=== PATIENT | male | born 1975 ===

== ENCOUNTER 2018-05-13 05:30 | Emergency (ER) | payer OTHER ==
[2018-05-13] MEDS ORDERED: Sodium Chloride 0.9% 1,000 ML IV STA (05:47)
--- NOTE | 2018-05-13 05:47 | ED PDOC ---
Arrival/HPI - General Chief Complaint: Abdominal Pain Time Seen by Provider: 05/13/18 05:33 Historian: Patient - History of Present Illness Narrative History of Present Illness (Text): 05/13/18 05:45 Jack Bush is a 43 year old male who presents to the Emergency department complaining of abdominal cramping. Patient states he was recently treated for pneumonia and placed on Levaquin and steroids 1 week prior. Patient states throughout the week he has been experiencing abdominal cramping with associated generalized malaise and nausea after taking the medication. Patient denies any fever, chills, chest pain, shortness of breath, vomiting, neck pain, headache, dizziness, or any other complaints. Time/Duration: 1 week Symptom Onset: Gradual Symptom Course: Unchanged Activities at Onset: Light Context: Home Past Medical History - Provider Review Nursing Documentation Reviewed: Yes - Cardiac Hx Cardiac Disorders: No - Pulmonary Hx Pneumonia: Yes - Neurological Hx Neurological Disorder: No - HEENT Hx HEENT Disorder: No - Renal Hx Renal Disorder: No - Endocrine/Metabolic Hx Endocrine Disorders: No - Hematological/Oncological Hx Blood Disorders: No - Integumentary Hx Dermatological Disorder: No - Musculoskeletal/Rheumatological Hx Musculoskeletal Disorders: No - Gastrointestinal Hx Gastrointestinal Disorders: No - Genitourinary/Gynecological Hx Genitourinary Disorders: No - Psychiatric Hx Psychophysiologic Disorder: No Hx Substance Use: No - Surgical History Hx Abdominal Aortic Aneurysm Repair: No - Anesthesia Hx Anesthesia: No Family/Social History - Physician Review Nursing Documentation Reviewed: Yes Family/Social History: Unknown Family HX Smoking Status: Never Smoked Hx Alcohol Use: No Hx Substance Use: No Allergies/Home Meds Allergies/Adverse Reactions: Allergies No Known Allergies Allergy (Verified 05/13/18 05:45) Home Medications: Home Meds Medication Instructions Recorded Confirmed Brompheniramine/Pseudoephed/Dm 2 tsp PO TID PRN 05/13/18 05/13/18 [[id number]-Mk Syr] levoFLOXacin [Levaquin] 500 mg PO DAILY 05/13/18 05/13/18 Review of Systems - Physician Review All systems were reviewed & negative as marked: Yes - Review of Systems Constitutional: Other (+generalized malaise). absent: Fevers Eyes: Normal ENT: Normal Respiratory: Normal Cardiovascular: Normal Gastrointestinal: Abdominal Pain (+abdominal cramping), Nausea. absent: Diarrhea, Vomiting Genitourinary Male: Normal. absent: Dysuria, Frequency, Hematuria, Urinary Output Changes Musculoskeletal: Normal. absent: Back Pain, Neck Pain Skin: Normal. absent: Rash Neurological: Normal. absent: Headache, Dizziness Endocrine: Normal Hemo/Lymphatic: Normal Psychiatric: Normal Physical Exam Vital Signs Reviewed: Yes Vital Signs Temp Pulse Resp BP Pulse Ox 05/13/18 05:36 98.2 F 91 H 18 136/85 100 Temperature: Afebrile Blood Pressure: Normal Pulse: Regular Respiratory Rate: Normal Appearance: Positive for: Well-Appearing, Non-Toxic, Comfortable Pain Distress: None Mental Status: Positive for: Alert and Oriented X 3 - Systems Exam Head: Present: Atraumatic, Normocephalic Pupils: Present: PERRL Extroacular Muscles: Present: EOMI Conjunctiva: Present: Normal Mouth: Present: Moist Mucous Membranes Neck: Present: Normal Range of Motion Respiratory/Chest: Present: Clear to Auscultation, Good Air Exchange. No: Respiratory Distress, Accessory Muscle Use Cardiovascular: Present: Regular Rate and Rhythm, Normal S1, S2. No: Murmurs Abdomen: No: Tenderness, Distention, Peritoneal Signs Back: Present: Normal Inspection Upper Extremity: Present: Normal Inspection. No: Cyanosis, Edema Lower Extremity: Present: Normal Inspection. No: Edema Neurological: Present: GCS=15, CN II-XII Intact, Speech Normal Skin: Present: Warm, Dry, Normal Color. No: Rashes Psychiatric: Present: Alert, Oriented x 3, Normal Insight, Normal Concentration Medical Decision Making ED Course and Treatment: 05/13/18 05:46 Impression: 43 year old male complaining of abdominal cramping, generalized malaise, and nausea. Plan: -- EKG -- Chest X-ray -- Labs, cardiac enzymes, amylase, lipase -- UA -- IV fluids -- Zofran -- Reassess and disposition Progress Notes: 05/13/18 05:42 Reviewed EKG, NSR at [address]-segment elevations or depressions, no T-wave inversions, normal intervals - EKG Interpretation Interpreted by ED Physician: Yes Type: 12 lead EKG - Transfer of Care Patient signed out to Dr:: esteban ct scan and dispo - Scribe Statement The provider has reviewed the documentation as recorded by the Scribe Claudia Estes Provider Scribe Attestation: All medical record entries made by the Scribe were at my direction and personally dictated by me. I have reviewed the chart and agree that the record accurately reflects my personal performance of the history, physical exam, medical decision making, and the department course for this patient. I have also personally directed, reviewed, and agree with the discharge instructions and disposition. Disposition/Present on Arrival - Present on Arrival Any Indicators Present on Arrival: No History of DVT/PE: No History of Uncontrolled Diabetes: No Urinary Catheter: No History of Decub. Ulcer: No History Surgical Site Infection Following: None - Disposition Have Diagnosis and Disposition been Completed?: Yes Diagnosis: Gastritis Disposition: HOME/ ROUTINE Disposition Time: 07:00 Condition: IMPROVED Discharge Instructions (ExitCare): Gastritis (DC) Print Language: TAMAZIGHT Prescriptions: Mag Hydrox/Aluminum Hyd/Simeth [Maalox Maximum Strength Susp] 355 ml PO Q6 #50 oral.susp Famotidine [Pepcid] 40 mg PO DAILY #10 tablet Referrals: [facility] at [facility] [place] [Outside] - Follow up with primary Miky Mclaughlin MD [Medical Doctor] - Follow up with primary Adry Castaneda MD [Medical Doctor] - Follow up with primary Forms: [facility] (Armenian), WORK NOTE
[2018-05-13 06:23] LABS: BASO # 0.03 K/mm3 (0.0-2.0); BASO % 0.2 % (0.0-3.0); EOS # 0.4 (0.0-0.7); EOS % 2.6 % (1.5-5.0); GRAN # 9.64 (1.4-6.5); GRAN % 72.3 % (50.0-68.0); HEMOGLOBIN 12.3 g/dL (14.0-18.0); LYMPH # 2.5 (1.2-3.4); LYMPH % 19.1 % (22.0-35.0); MEAN CELL VOLUME 91.3 fl (80.0-105.0); MEAN CORPUSCULAR HEMOGLOBIN 29.8 pg (25.0-35.0); MEAN CORPUSCULAR HGB CONC 32.6 g/dl (31.0-37.0); MEAN PLATELET VOLUME 9.3 fl (7.0-11.0); MONO # 0.8 (0.1-0.6); MONO % 5.8 % (1.0-6.0); RBC 4.13 10^6/uL (3.5-6.1); RED CELL DISTRIBUTION WIDTH 13.8 % (11.5-14.5); WHITE BLOOD COUNT 13.3 10^3/uL (4.5-11.0)
[2018-05-13 06:24] LABS: ALB/GLOB RATIO 1.1 (1.1-1.8); ALBUMIN 3.7 g/dL (3.0-4.8); AMYLASE 78 U/L (35-125); BLOOD UREA NITROGEN 21 mg/dL (7-21); CALCIUM 8.6 mg/dL (8.4-10.5); GFR NON-AFRICAN AMERICAN > 60; LIPASE 152 U/L (23-300)
[2018-05-13 06:27] LABS: INR 1.11; PARTIAL THROMBOPLASTIN TIME 30.6 Seconds (25.1-36.5); PROTHROMBIN TIME 12.8 SECONDS (9.4-12.5)
[2018-05-13 06:29] LABS: ALT/SGPT 43 U/L (7-56); AST/SGOT 34 U/L (17-59)
[2018-05-13 06:34] LABS: TROPONIN I < 0.01 ng/mL
[2018-05-13 06:46] VITALS: RESP 18; O2SAT 100; BMI 28.1
[2018-05-13] MEDS ORDERED: Iohexol 240 (50 ml) ONE (06:54)
--- NOTE | 2018-05-13 06:55 | ED PDOC ---
Physical Exam Vital Signs Temp Pulse Resp BP Pulse Ox 05/13/18 05:36 98.2 F 91 H 18 136/85 100 Medical Decision Making ED Course and Treatment: 05/13/18 06:[address] Dejesus with patient pending CT A/P. Labs reviewed with leukocytosis of 13,000 noted. 05/13/18 10:00 CT scan reveals diverticulosis without evidence of obstruction, inflammation or any acute intraabdominal pathology. Patient updated on findings and agrees to continue supportive measures at home and will follow up with his PCP. Scripts provided. He is stable for discharge. - Lab Interpretations Lab Results: 05/13/18 05:50 05/13/18 05:50 Lab Results 05/13/18 05:50: Sodium 137, Potassium 3.7, Chloride 103, Carbon Dioxide 27, Anion Gap 10, BUN 21, Creatinine 0.8, Est GFR ( Amer) > 60, Est GFR (Non- Af Amer) > 60, Random Glucose 102, Calcium 8.6, Total Bilirubin 0.3, AST 34, ALT 43, Alkaline Phosphatase 41, Lactate Dehydrogenase 522, Total Creatine Kinase 157, Troponin I < 0.01, Total Protein 7.2, Albumin 3.7, Globulin 3.5, Albumin/Globulin Ratio 1.1, Amylase 78, Lipase 152 05/13/18 05:50: PT 12.8 H, INR 1.11, APTT 30.6 05/13/18 05:50: WBC 13.3 H, RBC 4.13, Hgb 12.3 L, Hct 37.7 L, MCV 91.3, MCH 29.8, MCHC 32.6, RDW 13.8, Plt Count 318, MPV 9.3, Gran % 72.3 H, Lymph % (Auto) 19.1 L, [place] % (Auto) 5.8, Eos % (Auto) 2.6, Baso % (Auto) 0.2, Gran # 9.64 H, Lymph # (Auto) 2.5, [place] # (Auto) 0.8 H, Eos # (Auto) 0.4, Baso # (Auto) 0.03 - RAD Interpretation Narrative RAD Interpretations (Text): PROCEDURE: CT Abdomen and Pelvis with contrast Dictator : Valerie Lyons MD Report Date : 05/13/2018 09:37:31 IMPRESSION: No acute abdominal or pelvic abnormality. Left colonic diverticulosis without CT evidence for acute diverticulitis. Fatty liver. Radiology Orders: 05/13/18 05:47 CHEST PORTABLE [RAD] Stat 05/13/18 06:41 ABDOMEN & PELVIS [ABD PELVIS PO & IV CONTRAST] [CT] Stat Printer Floor Covering Assistant: Radiologist - Medication Orders Current Medication Orders: Sodium Chloride (Sodium Chloride 0.9%) 1,000 mls @ 100 mls/hr IV .Q10H STA Stop: 05/13/18 15:46 Last Admin: 05/13/18 06:07 Dose: 100 mls/hr eMAR Start Stop Document 05/13/18 06:07 IT (Rec: 05/13/18 06:07 IT [id number]) Intravenous Solution Start Date 05/13/18 Start Time 06:07 Discontinued Medications Famotidine (Pepcid) 20 mg IVP STAT STA Stop: 05/13/18 05:48 Last Admin: 05/13/18 06:07 Dose: 20 mg IVP Administration Document 05/13/18 06:07 IT (Rec: 05/13/18 06:07 IT [id number]) Charges for Administration # of IVP Administrations 1 Disposition/Present on Arrival - Present on Arrival Any Indicators Present on Arrival: No History of DVT/PE: No History of Uncontrolled Diabetes: No Urinary Catheter: No History of Decub. Ulcer: No History Surgical Site Infection Following: None - Disposition Have Diagnosis and Disposition been Completed?: Yes Diagnosis: Gastritis Disposition: HOME/ ROUTINE Disposition Time: 09:55 Patient Plan: Discharge Patient Problems: Current Active Problems Problem Status Onset Gastritis Acute Condition: IMPROVED Discharge Instructions (ExitCare): Gastritis (DC) Print Language: SYRIAN Prescriptions: Famotidine [Pepcid] 40 mg PO DAILY #10 tablet Mag Hydrox/Aluminum Hyd/Simeth [Maalox Maximum Strength Susp] 355 ml PO Q6 #50 oral.susp Referrals: Miky Mclaughlin MD [Medical Doctor] - Follow up with primary [facility] at [facility] [place] [Outside] - Follow up with primary Adry Castaneda MD [Medical Doctor] - Follow up with primary Forms: [employer] (Albanian), WORK NOTE
[2018-05-13] MEDS ORDERED: Iohexol 350 MG/100 ML VIAL ONE (08:20)
[2018-05-13 09:14] LABS: URINE APPEARANCE CLEAR (CLEAR); URINE BILIRUBIN NEGATIVE (NEGATIVE); URINE BLOOD NEGATIVE (NEGATIVE); URINE COLOR DARK YELLOW (YELLOW); URINE GLUCOSE (UA) NEGATIVE (NEGATIVE); URINE LEUKOCYTE ESTERASE NEGATIVE Leu/uL (NEGATIVE); URINE PROTEIN TRACE mg/dL (<30 mg/dL); URINE UROBILINOGEN 0.2 E.U./dL (<1 E.U./dL)
[2018-05-13 09:23] LABS: URINE BACTERIA FEW (NEG); URINE RBC NEGATIVE /hpf (0-2); URINE WBC 0 - 2 /hpf (0-6)
--- NOTE | 2018-05-13 09:41 | CT ---
Date of service: 05/13/2018 PROCEDURE: CT Abdomen and Pelvis with contrast HISTORY: Abdominal pain COMPARISON: None available. TECHNIQUE: CT scan of the abdomen and pelvis was performed after administration of intravenous contrast. Oral contrast was administered. Coronal and sagittal reformatted images were obtained. Contrast dose: 100 mL Omnipaque 350 Radiation dose: Total exam DLP = 443.7 mGy-cm. This CT exam was performed using one or more of the following dose reduction techniques: Automated exposure control, adjustment of the mA and/or kV according to patient size, and/or use of iterative reconstruction technique. FINDINGS: LOWER THORAX: There is dependent atelectasis in the lung bases. LIVER: Normal in size with homogeneous enhancement. Diffuse fatty liver. No gross lesion or ductal dilatation. GALLBLADDER AND BILE DUCTS: Well distended. No calcified gallstones, wall thickening or pericholecystic fluid. PANCREAS: Normal in size with homogeneous enhancement. No gross lesion or ductal dilatation. SPLEEN: Normal in size and appearance. ADRENALS: No discrete nodule. KIDNEYS AND URETERS: Normal in size with homogeneous enhancement. No hydronephrosis. No solid mass. VASCULATURE: No aortic aneurysm. BOWEL: The small bowel loops are normal in caliber. There is moderate amount of stool in the ascending and transverse colon. There is left colonic diverticulosis without CT evidence for acute diverticulitis. No bowel wall thickening or obstruction. APPENDIX: Normal appendix. PERITONEUM: No free fluid. No free air. LYMPH NODES: No enlarged lymph nodes. BLADDER: Well distended and normal in appearance. REPRODUCTIVE: The uterus is normal in size. BONES: No acute fracture. Within normal limits for the patient's age. OTHER FINDINGS: None. IMPRESSION: No acute abdominal or pelvic abnormality. Left colonic diverticulosis without CT evidence for acute diverticulitis. Fatty liver.
[2018-05-13] MEDS ORDERED: Atrop/Hyosc/Scopal/PB Elixir (120 ml) PO STA (09:58)
[2018-05-13] MEDS ORDERED: Alum-Mag Hydrox-Simethicone Susp (30 mL) PO STA (09:58)
[2018-05-13 10:15] VITALS: BP 128/64; PULSE 75; TEMP 98.1
--- NOTE | 2018-05-13 10:35 | CARD ---
APPROVED REPORT Date of service: 05/13/2018 EKG Measurement Heart [id number] <Conclusion> Normal sinus rhythm Normal ECG
--- NOTE | 2018-05-13 11:13 | RAD ---
Date of service: 05/13/2018 HISTORY: abd pain COMPARISON: No prior. FINDINGS: LUNGS: The lungs are well inflated and clear. PLEURA: No pleural effusions or pneumothorax. CARDIOVASCULAR: The heart is normal in size. No aortic atherosclerotic calcification present. OSSEOUS STRUCTURES: Within normal limits for the patient's age. VISUALIZED UPPER ABDOMEN: Normal. OTHER FINDINGS: None. IMPRESSION: No active pulmonary disease.
== END 2018-05-13 10:40 | disposition home or self-care (01) ==
LOC: MERGE 05:30 → ED 05:30
DX: K29.70 Gastritis, unspecified, without bleeding (principal)
CPT/HCPCS: 71045; 74177; 80053; 81001; 82150; 82550; 83615; 83690; 84484; 85025; 85610; 85730; 93005; 96374; 99285; J7030; Q9966; Q9967